=== PATIENT | male | born 1995 | race African-American/Black ===

== ENCOUNTER 2017-10-11 16:38 | Inpatient (IN) | payer OTHER ==
[~2017-10-11] VITALS: Ht 175.3 cm; Wt 102.7 kg
[2017-10-11] MEDS ORDERED: ZYBAN 150 MG T150 MG PO (16:56)
[2017-10-11] MEDS ORDERED: OLANZAPINE15 MG PO (16:57)
[2017-10-11] MEDS ORDERED: PRAZOSIN HCL2 MG PO (16:58)
[2017-10-11 17:00] LABS: BASOPHIL (%) 0.3 % (0-1); EOSINOPHIL (%) 1.9 % (0-5); EOSINOPHIL COUNT 0.2 K/uL (0-0.3); HEMATOCRIT 42.2 % (38.0-50.0); HEMOGLOBIN 14.6 G/DL (12.5-16.6); IMMATURE GRANULOCYTE (%) 0.3 % (0.0-0.7); LYMPHOCYTE (%) 22.4 % (15-42); LYMPHOCYTE COUNT 2.2 K/uL (1.0-2.8); MCHC 34.6 G/DL (30.0-36.0); MCV 89.6 FL (86-99); MONOCYTE (%) 8.2 % (3-12); MONOCYTE COUNT 0.8 K/uL (0-0.8); NEUTROPHIL (%) 66.9 % (45-76); NEUTROPHIL COUNT 6.4 K/uL (1.8-6.4); PLATELET COUNT 242 K/uL (156-360); RBC DIS.WIDTH-CV 12.6 % (11.8-14.6); RBC DIS.WIDTH-SD 41.3 % (39-53); RED BLOOD COUNT 4.71 M/uL (4.00-5.50); WHITE BLOOD COUNT 9.6 K/uL (4.1-10.2)
[2017-10-11 17:10] LABS: CHLORIDE 105 mEq/L (99-109); POTASSIUM 4.1 mEq/L (3.7-5.4); SODIUM 140 mEq/L (136-147)
[2017-10-11 17:12] LABS: GLUCOSE 98 mg/dL (70-99)
[2017-10-11 17:15] LABS: SERUM ETHYL ALCOHOL < 10 mg/dL
[2017-10-11 17:16] LABS: CREATININE 0.8 mg/dL (0.6-1.3); GFR ESTIMATE (CALCULATED) > 59 mL/min/ (58.99-99999)
[2017-10-11 17:17] LABS: UREA NITROGEN (BUN) 18 mg/dL (9-23)
[2017-10-11 17:24] LABS: AMPHETAMINE NEGATIVE (500 ng/mL); BARBITURATES NEGATIVE (200 ng/mL); BENZODIAZEPINES NEGATIVE (150 ng/mL); BUPRENORPHINE NEGATIVE (10 ng/mL); COCAINE NEGATIVE (150 ng/mL); METHADONE NEGATIVE (200 ng/mL); METHAMPHETAMINE NEGATIVE (500 ng/mL); OPIATES (MORPHINE) NEGATIVE (100 ng/mL); OXYCODONE NEGATIVE (100 ng/mL); PHENCYCLIDINE NEGATIVE (25 ng/mL); PROPOXYPHENE NEGATIVE (300 ng/mL); THC CANNABINOIDS NEGATIVE (50 ng/mL); TRICYCLIC ANTIDEPRESSANTS NEGATIVE (300 ng/mL)
[2017-10-11] MEDS ORDERED: ONE DAILY1 EAC3 PO (19:18)
[2017-10-11] MEDS ORDERED: WELLBUTRIN XL150 MG PO (19:18)
[2017-10-11 20:09] VITALS: BP 143/86
[2017-10-12 07:43] VITALS: BP 135/58
[2017-10-12] MEDS ORDERED: WELLBUTRIN XL150 MG PO (11:57)
[2017-10-12] MEDS ORDERED: OLANZAPINE15 MG PO (11:57)
[2017-10-12] MEDS ORDERED: PRAZOSIN HCL2 MG PO (11:57)
== END 2017-10-12 12:57 | DRG 882 ==
LOC: EME 16:38 → 1WEST 18:34 → EDOF 18:34 → ENRESERV 20:03 → 1WEST 20:03
PROVIDERS: Emergency Medicine
DX: F43.20 Adjustment disorder, unspecified (principal); F60.2 Antisocial personality disorder; F12.90 Cannabis use, unspecified, uncomplicated; F16.90 Hallucinogen use, unspecified, uncomplicated; F13.90 Sedative, hypnotic, or anxiolytic use, unspecified, uncomplicated; F17.200 Nicotine dependence, unspecified, uncomplicated; R45.851 Suicidal ideations; Z91.14 Patient's other noncompliance with medication regimen
CPT/HCPCS: 80048; 85025; 90837; 99281; 99285; G0480